=== PATIENT | male | born 1965 | race Two or more races ===

== ENCOUNTER 2021-03-09 15:57 | Emergency (ER) | payer OTHER ==
[~2021-03-09] VITALS: Ht 180.3 cm; Wt 95.3 kg
[2021-03-09 16:40] VITALS: BP 127/83
[2021-03-09] MEDS ORDERED: cefTRIAXone SOD 1,000 MG VL ONE (17:06)
[2021-03-09] MEDS ORDERED: cefTRIAXone SOD 1,000 MG VL IM ONE (17:15)
== END 2021-03-09 17:29 | disposition home or self-care (01) ==
LOC: ER 15:57
DX: U07.1 COVID-19 (principal); M79.10 Myalgia, unspecified site
CPT/HCPCS: 71045; 96372; 99283; J0696

== ENCOUNTER 2022-09-05 18:50 | Inpatient (IN) | payer BC, OTHER ==
[~2022-09-05] VITALS: Ht 182.9 cm; Wt 105.6 kg
[2022-09-05 21:08] LABS: Urine Bacteria NONE SEEN /hpf (None Seen); Urine Blood Negative /uL (Negative); Urine Mucus FEW (None Seen); Urine Specific Gravity 1.025 (1.001-1.035); Urine WBC 1 /hpf (0 - 3)
[2022-09-05 21:28] LABS: Basophils # (auto) 0.1 10 ^3/uL (0-0.2); Basophils % (auto) 1.1 % (0.0-2.0); Eosinophils # (auto) 0.1 10 ^3/uL (0-0.8); Eosinophils % (auto) 1.5 % (0.0-7.0); Hematocrit 45.1 % (41.0-53.0); Hemoglobin 14.8 g/dL (13.5-17.5); Lymphocytes # (auto) 3.3 10 ^3/uL (0.4-5.4); Lymphocytes % (auto) 45.6 % (10.0-50.0); Mean Corpuscular Hemoglobin 28.9 pg (28.0-32.0); Mean Corpuscular Hgb Conc. 32.9 g/dL (32.0-36.0); Mean Corpuscular Volume 87.7 fL (80.0-100.0); Monocytes # (auto) 0.7 10 ^3/uL (0-1.3); Monocytes % (auto) 9.1 % (0.0-12.0); Neutrophils % (auto) 42.7 % (37.0-80.0); Nucleated Red Blood Cells % 0.3 %; Red Blood Cells 5.14 10^6/uL (4.5-5.90); Red Cell Distribution Width 13.7 % (11.8-14.3); White Blood Cell 7.1 10^3/uL (4.4-10.8)
[2022-09-05 21:38] LABS: Albumin 3.9 g/dL (3.4-5.0); Calcium 9.2 mg/dL (8.5-10.1); Potassium 3.9 mmol/L (3.5-5.1)
[2022-09-05 21:42] LABS: BUN/Creatinine Ratio 14.6 (10.0-20.0); Bilirubin, Total 0.3 mg/dL (0.2-1.0); Total Protein 7.9 g/dL (6.4-8.2)
[2022-09-06] MEDS ORDERED: NITROGLYCERIN 0.4 MG SL TAB SL PRN (07:00)
[2022-09-06] MEDS ORDERED: ACETAMINOPHEN 325 MG TAB PO PRN (07:00)
[2022-09-06] MEDS ORDERED: ONDANSETRON HCL 4 MG/2 ML VIAL IV PRN (07:00)
[2022-09-06] MEDS: ASPirin 81 mg TAB PO SCH (10:50)
[2022-09-06] MEDS: LISINOPRIL 5 MG TAB PO SCH (10:51)
[2022-09-06] MEDS: ENOXAPARIN SOD 40 MG/0.4 ML SYRINGE SC SCH (11:02)
[2022-09-06 22:00] VITALS: BP 124/70
[2022-09-07 05:00] VITALS: BP 114/71
[2022-09-07 09:00] VITALS: BP 101/49
[2022-09-07] MEDS: LISINOPRIL 5 MG TAB PO SCH (10:00)
[2022-09-07] MEDS: ENOXAPARIN SOD 40 MG/0.4 ML SYRINGE SC SCH (10:00)
[2022-09-07] MEDS: ASPirin 81 mg TAB PO SCH (12:14)
[2022-09-07 13:00] VITALS: BP 115/75
[2022-09-07 16:45] VITALS: BP 144/82
[2022-09-07 22:00] VITALS: BP 116/77
[2022-09-08 05:00] VITALS: BP 132/68
[2022-09-08 08:00] VITALS: BP 117/78
[2022-09-08 09:00] VITALS: BP 117/78
[2022-09-08] MEDS: LISINOPRIL 5 MG TAB PO SCH (10:00)
[2022-09-08] MEDS: ENOXAPARIN SOD 40 MG/0.4 ML SYRINGE SC SCH (10:00)
[2022-09-08] MEDS: ASPirin 81 mg TAB PO SCH (10:20)
[2022-09-08 13:00] VITALS: BP 121/81
[2022-09-08] MEDS ORDERED: LISI-275 PO (14:34)
[2022-09-08 15:24] VITALS: BP 121/87
== END 2022-09-08 16:08 | disposition home or self-care (01) | DRG 948 ==
LOC: ER 18:50 → TELE 09-06 06:52 → TELE-WESTW 09-06 18:39
PROVIDERS: ADMIT Nurse Practitioner; ATTEND Internal Medicine
DX: R53.1 Weakness (principal); R00.1 Bradycardia, unspecified; I10 Essential (primary) hypertension; E03.9 Hypothyroidism, unspecified; Z88.8 Allergy status to other drugs, medicaments and biological substances
CPT/HCPCS: 36415; 70450; 70551; 71045; 72148; 80053; 81001; 83880; 84443; 84484; 85025; 93005; 93971; 97110; 97116; 97163; 97530; G0378

== ENCOUNTER 2022-10-15 12:51 | Emergency (ER) | payer BC ==
[~2022-10-15] VITALS: Ht 180.3 cm; Wt 104.3 kg
[~2022-10-15 12:51] MED LIST: LISI-275 PO
[2022-10-15 13:33] LABS: Basophils # (auto) 0.1 10 ^3/uL (0-0.2); Basophils % (auto) 0.9 % (0.0-2.0); Eosinophils # (auto) 0.1 10 ^3/uL (0-0.8); Hematocrit 46.1 % (41.0-53.0); Hemoglobin 15.4 g/dL (13.5-17.5); Lymphocytes # (auto) 2.4 10 ^3/uL (0.4-5.4); Mean Corpuscular Hemoglobin 28.9 pg (28.0-32.0); Mean Corpuscular Hgb Conc. 33.5 g/dL (32.0-36.0); Mean Corpuscular Volume 86.4 fL (80.0-100.0); Monocytes # (auto) 0.4 10 ^3/uL (0-1.3); Monocytes % (auto) 7.6 % (0.0-12.0); Neutrophils # (auto) 2.6 10 ^3/uL (1.6-8.6); Neutrophils % (auto) 46.5 % (37.0-80.0); Nucleated Red Blood Cells % 0.1 %; Red Blood Cells 5.33 10^6/uL (4.5-5.90); White Blood Cell 5.6 10^3/uL (4.4-10.8)
[2022-10-15 14:13] LABS: Albumin 3.8 g/dL (3.4-5.0); Calcium 9.1 mg/dL (8.5-10.1); Potassium 4.1 mmol/L (3.5-5.1)
[2022-10-15 14:20] LABS: BUN/Creatinine Ratio 13.5 (10.0-20.0); Bilirubin, Total 0.7 mg/dL (0.2-1.0); Magnesium 2.1 mg/dL (1.6-2.6); Total Protein 7.4 g/dL (6.4-8.2)
[2022-10-15 15:41] VITALS: BP 137/87
== END 2022-10-15 15:49 | disposition home or self-care (01) ==
LOC: ER 12:51
DX: R53.1 Weakness (principal); Z98.890 Other specified postprocedural states
CPT/HCPCS: 36415; 70551; 80053; 83735; 84484; 85025